=== PATIENT | male | born 1955 | race Caucasian/White ===

== ENCOUNTER 2016-12-17 17:19 | Emergency (ER) | payer OTHER ==
[2016-12-17 17:34] VITALS: RESP 18
--- NOTE | 2016-12-17 17:53 | EDPHY ---
H & P Time Seen by Provider: 12/17/16 17:52 HPI/ROS: CHIEF COMPLAINT: Cough fever and myalgias HISTORY OF PRESENT ILLNESS: This 61-year-old man was in [facility] 7 weeks ago. He developed a respiratory illness there including fever chills body aches sweats and cough. He was treated with 5 days of an oral antibiotic at that time by doctor there. He felt a little bit better but [place] had [place] of his symptoms and was treated 3 weeks ago by his primary care physician with amoxicillin for recurrence of symptoms. 2 weeks ago he was placed on prednisone as well and then over the past 24 hours had recurrence of body aches sweats and nonproductive cough. No chest pain. No rash. Mild headache. He does have some drainage from both eyes and a lot of clear and yellow snot in his nose. No known insect bites, no fresh water exposure. No gastrointestinal symptoms. REVIEW OF SYSTEMS: Eye: no change in vision ENT: no sore throat Cardiac: no chest pain or syncope Pulmonary: HPI Abdomen: no vomiting, diarrhea, abdominal pain Musculoskeletal: no back pain but diffuse myalgias Skin: no rash Neuro: no headache Constitutional: HPI : no urinary symptoms A comprehensive 10 point review of systems is otherwise negative aside from elements mentioned in the history of present illness. PAST MEDICAL HISTORY: Includes coronary disease with bypass surgery. Achilles tendon surgery. Asthma. Social history: Nonsmoker. General Appearance: Alert and conversant, cooperative. Eyes: No scleral icterus. Slight bilateral conjunctival erythema without exudate. ENT, Mouth: Normal mucous membranes. No pharyngeal erythema or intraoral lesions or trismus. Respiratory: Bilateral wheezing with increased expiratory phase at no focal lung sounds. No stridor. Cardiovascular: Regular rate and rhythm. Gastrointestinal: Abdomen is soft and non tender. No hepatosplenomegaly. Neurological: Alert and oriented x3. Normally conversant. Face symmetric, normal movement and sensation in all extremities. Skin: Warm and dry, no rashes. No vesicles petechiae or purpura. Musculoskeletal: No peripheral edema and no joint swelling. Neck supple. No calf or leg swelling. Psychiatric: Not agitated. Emergency Department course/MDM: Discussed with Dr. Ebony Pantoja at 6:10 p.m. recommend chest Xray, CBC chemistry, no blood cultures, malaria unlikely, will follow up in the office this week. White blood cell count [id number], chest x-ray does not show pneumonia. 1930: Results discussed the patient. Because of leukocytosis he would like to try repeat antibiotics. Oral azithromycin, he has an albuterol inhaler, repeat albuterol nebulizer, prednisone 60 mg p.o.. Influenza still pending at this time. Other systemic febrile illnesses including but not limited to dengue, malaria, endocarditis considered but I think less likely in that the patient clearly has a cough and wheezing and pulmonary component to his illness every time it flares up over the last 7 weeks. TB considered and discussed with Kit; office followup unless clear CXR abnormality, with neg CXR active TB thought unlikely. Smoking Status: Never smoked Constitutional: Initial Vital Signs Temperature (C) 37.2 C 12/17/16 17:25 Heart Rate 80 12/17/16 17:25 Respiratory Rate 18 12/17/16 17:25 Blood Pressure 112/73 12/17/16 17:25 O2 Sat (%) 98 12/17/16 17:25 O2 Delivery Mode Room Air Allergies/Adverse Reactions: No Known Allergies Allergy (Unverified 12/17/16 17:34) Home Medications: Medication Instructions Recorded Albuterol Hfa Anes Only [Proair 200 puffs IH 12/17/16 Hfa Icu (*)] Atorvastatin Calcium [Lipitor 40 40 mg PO 12/17/16 mg (*)] Azithromycin 250 mg PO DAILY #4 tablet 12/17/16 Beclomethasone Qvar 40 [Qvar 40 120 puffs IH 12/17/16 (*)] Benzonatate [Tessalon Pearles (RX)] 100 mg PO Q8 PRN #15 cap 12/17/16 predniSONE [prednisone 20mg (RX)] 60 mg PO DAILY 7 Days 12/17/16 Medical Decision Making - Diagnostics Imaging: Chest x-ray reviewed with Dr. Dickerson at 6:30 p.m. shows bronchitis pattern, otherwise normal. No consolidation, no cavitary lesions, no mediastinal air. Normal heart size. Differential Diagnosis: Including but not limited to TB, influenza, other viral, bronchitis, pneumonia, dengue, malaria, CHF, PE. - Data Points Laboratory Results: Laboratory Results 12/17/16 18:15 12/17/16 18:15 12/17/16 18:15 Influenza A & B (PCR) NEGATIVE FOR FLU (NEGATIVE) Medications Given: Discontinued Medications Acetaminophen/Hydrocodone Bitart ([place] 5/325mg Prepack#6) 1 btl TAKEHOME EDNOW ONE Stop: 12/17/16 20:11 Last Admin: 12/17/16 20:37 Dose: 1 btl Albuterol (Proventil Neb) 3 ml IH EDNOW ONE Stop: 12/17/16 19:48 Last Admin: 12/17/16 19:50 Dose: 3 ml Albuterol Sulfate (Proventil Inh Prepack) 1 mdi TAKEHOME EDNOW ONE Stop: 12/17/16 20:31 Last Admin: 12/17/16 20:38 Dose: 1 mdi Albuterol/Ipratropium (Duoneb) 3 ml IH EDNOW ONE Stop: 12/17/16 18:10 Last Admin: 12/17/16 18:37 Dose: 3 ml Azithromycin (Zithromax) 500 mg PO EDNOW ONE PRN Reason: Protocol Stop: 12/17/16 19:48 Last Admin: 12/17/16 20:15 Dose: 500 mg Prednisone (Prednisone) 60 mg PO EDNOW ONE Stop: 12/17/16 19:48 Last Admin: 12/17/16 20:01 Dose: 60 mg Departure - Departure Disposition: Home, Routine, Self-Care Clinical Impression: Bronchitis Condition: Good Instructions: Hydrocodone/Acetaminophen (By mouth), Albuterol (By breathing), Acute Bronchitis (ED) Additional Instructions: Influenza test negative. Use your albuterol inhaler 2 puffs every 4 hours for shortness of breath as needed. Call [facility] on Monday for follow-up in the office this week. 1 oral of Vicodin by mouth at night as needed for cough. Referrals: Ebony Pantoja MD [Medical Doctor] - As per Instructions (Follow-up with [facility] this week, I discussed your case with this physician on the telephone.) Stand Alone Forms: Work Excuse Prescriptions: Azithromycin 250 mg PO DAILY #4 tablet Benzonatate [Tessalon Pearles (RX)] 100 mg PO Q8 PRN #15 cap PRN Reason: Cough, Moderate predniSONE [prednisone 20mg (RX)] 60 mg PO DAILY 7 Days
[2016-12-17] MEDS ORDERED: IPRATROPIUM/ALBUTEROL 3 ML DEYVIAL IH ONE (18:09)
[2016-12-17] MEDS ORDERED: IPRATROPIUM/ALBUTEROL 3 ML DEYVIAL ONE (18:28)
[2016-12-17 18:39] LABS: % IMMATURE GRANULYOCYTES 0.3 % (0.0-1.1); ABSOLUTE IMMATURE GRANULOCYTES 0.06 10^3/uL (0.00-0.10); ADD DIFF? NO; ADD MORPH? NO; ADD SCAN? NO; ATYPICAL LYMPHOCYTE FLAG 0 (0-99); FRAGMENT RBC FLAG 0 (0-99); HEMATOCRIT 43.1 % (40.0-51.0); HEMOGLOBIN 15.3 g/dL (13.7-17.5); LEFT SHIFT FLG 10 (0-99); LIPEMIA HEMOLYSIS FLAG 90 (0-99); MEAN CELL HEMOGLOBIN 30.8 pg (27.9-34.1); MEAN CELL HEMOGLOBIN CONCENTR. 35.5 g/dL (32.4-36.7); MEAN CELL VOLUME 86.9 fL (81.5-99.8); MEAN PLATELET VOLUME 9.5 fL (8.7-11.7); PLATELET CLUMPS FLAG 0 (0-99); PLATELET COUNT 238 10^3/uL (150-400); RED BLOOD CELL COUNT 4.96 10^6/uL (4.40-6.38); RED CELL DISTRIBUTION WIDTH 12.7 % (11.5-15.2)
--- NOTE | 2016-12-17 18:42 | DX ---
Chest, PA and Lateral December 17, 2016 History: Dyspnea. Cough. Comparison: April 2010. Findings: Heart size is within normal limits. Pulmonary vascularity appears normal. Emphysematous con figuration to the chest. Minimal peribronchial wall thickening is seen. No evidence for pleural effus ion or pneumothorax. Mild degenerative change is seen in the thoracic spine. There is evidence of claudia or open heart surgery with sternotomy wires and clips in the anterior mediastinum. Impression: Minimal bronchitis. No other findings for acute cardiopulmonary abnormality.
[2016-12-17 18:57] LABS: ANION GAP 8 mEq/L (8-16); CALCIUM 9.2 mg/dL (8.5-10.4); CARBON DIOXIDE 25 mEq/l (22-31); CHLORIDE 105 mEq/L (97-110); GLOMERULAR FILTRATION RATE > 60; GLUCOSE 77 mg/dL (70-100); POTASSIUM 4.3 mEq/L (3.5-5.2); SODIUM 138 mEq/L (134-144)
[2016-12-17] MEDS ORDERED: ALBUTEROL 3 ML DEYVIAL IH ONE (19:47)
[2016-12-17] MEDS ORDERED: predniSONE 20 MG TAB PO ONE (19:47)
[2016-12-17] MEDS ORDERED: AZITHROMYCIN 250 MG TAB PO ONE (19:47)
[2016-12-17] MEDS ORDERED: HYDROCOD/APAP 5/325 PREPACK#6 BTL TAKEHOME ONE (20:10)
[2016-12-17] MEDS ORDERED: ALBUTEROL INH PREPACK MDI TAKEHOME ONE ×2 (20:26→20:30)
[2016-12-17 20:36] VITALS: BP 107/76; PULSE 97; TEMP 98.4; O2SAT 92
== END 2016-12-17 20:39 | disposition home or self-care (01) ==
DX: J20.9 Acute bronchitis, unspecified (principal); J45.909 Unspecified asthma, uncomplicated

== ENCOUNTER 2017-05-18 12:04 | Day surgery (SDC) | payer OTHER ==
[2017-05-18] MEDS ORDERED: ASPIRIN EC 325 MG TAB PO ONE ×2 (12:05→12:26)
[2017-05-18] MEDS ORDERED: NS 1,000 ML IV ONE (12:05)
[2017-05-18] MEDS ORDERED: DIAZEPAM 5 MG TAB PO ONE (12:05)
[2017-05-18] MEDS ORDERED: FAMOTIDINE 20 MG TAB PO ONE (12:05)
[2017-05-18] MEDS ORDERED: diphenhydrAMINE 25 MG CAP PO ONE ×2 (12:05→12:26)
[2017-05-18] MEDS ORDERED: FAMOTIDINE 20 MG TAB ONE (12:26)
--- NOTE | 2017-05-18 12:26 | CPEKG ---
Heart Rate: 69 RR Interval: 870 P-R Interval: 168 QRSD Interval: 92 QT Interval: 404 QTC Interval: 433 P [place]: 79 QRS [place]: 0 T Wave [place]: 43 EKG Severity - NORMAL ECG - EKG Impression: SINUS RHYTHM Electronically Signed By: Arvin Blount 18-May-2017 16:06:48
[2017-05-18] MEDS ORDERED: DIAZEPAM 5 MG TAB ONE (12:27)
[2017-05-18 12:35] LABS: % IMMATURE GRANULYOCYTES 0.4 % (0.0-1.1); ABSOLUTE IMMATURE GRANULOCYTES 0.03 10^3/uL (0.00-0.10); ADD DIFF? NO; ADD MORPH? NO; ADD SCAN? NO; ATYPICAL LYMPHOCYTE FLAG 20 (0-99); FRAGMENT RBC FLAG 0 (0-99); HEMATOCRIT 47.2 % (40.0-51.0); HEMOGLOBIN 16.8 g/dL (13.7-17.5); LEFT SHIFT FLG 0 (0-99); LIPEMIA HEMOLYSIS FLAG 90 (0-99); MEAN CELL HEMOGLOBIN CONCENTR. 35.6 g/dL (32.4-36.7); MEAN CELL VOLUME 89.9 fL (81.5-99.8); MEAN PLATELET VOLUME 9.4 fL (8.7-11.7); PLATELET CLUMPS FLAG 0 (0-99); PLATELET COUNT 260 10^3/uL (150-400); RED BLOOD CELL COUNT 5.25 10^6/uL (4.40-6.38); RED CELL DISTRIBUTION WIDTH 12.1 % (11.5-15.2)
[2017-05-18] MEDS ORDERED: LIDOCAINE 1% 300 MG/30 ML SDV ONE (12:42)
[2017-05-18] MEDS ORDERED: fentaNYL 100 MCG/2 ML INJ ONE (12:43)
[2017-05-18] MEDS ORDERED: IOPAMIDOL (ISOVUE-370) 150 ML BTL IV ONE (12:43)
[2017-05-18] MEDS ORDERED: MIDAZOLAM 2 MG/2 ML VIAL ONE ×3 (12:43→13:56)
[2017-05-18 12:47] LABS: INR 0.94 (0.83-1.16); PROTIME(PATIENT) 12.5 SEC (12.0-15.0)
[2017-05-18 12:59] LABS: ANION GAP 11 mEq/L (8-16); CALCIUM 9.9 mg/dL (8.5-10.4); CARBON DIOXIDE 20 mEq/l (22-31); CHLORIDE 108 mEq/L (97-110); CHOLESTEROL 162 mg/dL (140-220); CHOLESTEROL/HDL RATIO 1.98 RATIO (1.00-4.97); CREATININE 1.1 mg/dL (0.7-1.3); GLOMERULAR FILTRATION RATE > 60; GLUCOSE 94 mg/dL (70-100); HIGH DENSITY LIPOPROTEIN 82 mg/dL (40-65); LDL/HDL RATIO 0.87 RATIO (1.00-3.64); LOW DENSITY LIPOPROTEIN 71 mg/dL (80-100); NON-HIGH DENSITY LIPOPROTEIN 80 mg/dL (90-129); POTASSIUM 4.4 mEq/L (3.5-5.2); SODIUM 139 mEq/L (134-144); TRIGLYCERIDE 46 mg/dL (40-150); VERY LOW DENSITY LIPOPROTEINS 9 mg/dL (8-25)
--- NOTE | 2017-05-19 07:37 | CPIP ---
[f rep st] INVASIVE CARDIAC PROCEDURE DATE OF PROCEDURE: 05/18/2017 PROCEDURE PERFORMED: 1. Selective coronary angiography. 2. Selective saphenous vein graft angiography to the diagonal. 3. Selective saphenous vein graft angiography to the obtuse marginal system. 4. Selective left internal mammary artery angiography. 5. Selective right internal mammary artery angiography. 6. Left ventriculogram. 7. Left heart catheterization. 8. Manual hold arteriotomy repair of the right femoral approach. COMPLICATIONS: None. INDICATION FOR THE PROCEDURE: Recurrent chest discomfort occurring at rest with CCS Class IV angina , as well as an abnormal intermediate risk nuclear stress test, suggesting myocardial ischemia. PROCEDURE IN DETAIL: After informed consent was obtained and n.p.o. status was confirmed, the regio n of the right groin was cleaned, prepped and draped in sterile fashion. Approximately 10 cc of 1% lidocaine was utilized for local anesthesia. A micropuncture set was used to gain access to the com mon femoral vein using modified Seldinger technique. The 6-Armenian sheath was then placed over a J w annette. The patient then underwent the previously mentioned diagnostic procedures with the use of JL4 and R4 curved coronary catheters, as well as a 5-Armenian Mckinley right catheter and a 6-Armenian pigta il catheter. Standard wire exchange technique was utilized for all catheter exchanges. The left main coronary lumen is approximately 5 mm in size. It is severely obstructed at the bifurc ation of the LAD and circumflex vessels. There is evidence of competitive flow and back filling of a saphenous vein graft to the diagonal saphenous vein graft to the circumflex obtuse marginal and of the EASTMAN to the LAD. There is [place]-3 flow through the vessels. There is high-grade proximal obstr uction of the LAD, estimated at 70%-80%. There was severe obstruction of the proximal left circumfl ex with a 90%-95% obstruction, which is relatively diffuse and long. The right catheter was used to gain access to the vein graft to the diagonal which is widely patent with good anastomosis and exce llent [place]-3 flow to the diagonal vessel. The vessel is large, approximately 2.5 mm in size. It is free of flow-limiting disease, distal to the anastomosis. The retrograde limb of the diagonal conn ecting into the LAD is almost completely obstructed. The saphenous vein graft to the obtuse margina l vessel is likewise widely patent without evidence of disease. There is excellent [place]-3 flow into the obtuse marginal branches. The EASTMAN catheter was then placed in the left subclavian vein over a wire and EASTMAN angiography was performed. The EASTMAN has an unusual anatomic distribution and splits into 2 branches. One which is medial and is anastomosed to the LAD, the other which goes laterally to the chest and provides multiple intercostal branches to the left side of the chest. The EASTMAN is therefore quite small compared to normal but is anastomosed to the LAD and is widely patent. It is approximately 1/2 the size of the LAD proper. The DANYA catheter was used to gain access to the right internal mammary artery. The right internal mammary artery is atretic and occluded and has a simil ar wide bifurcation just after its takeoff from the right subclavian vein. It likewise has a latera l branch that goes to the lateral anterior wall of the chest providing intercostals to the right nam e of the chest. The medial branch, which was originally anastomosed to the right coronary artery, i s again noted to be atretic and is occluded without important flow to the myocardium. Mckinley righ t catheter was then used to gain access to the [place] right coronary artery which has been previousl y stented. That vessel is widely patent with approximately 40% stenosis. There is excellent [place]-3 flow of the distal vessel and this stent is widely patent without evidence of obstruction or resten oses. The patient underwent left heart catheterization demonstrating elevated left ventricular end-diastol ic pressure measured at 17 mmHg. The patient underwent left ventriculogram in the HU[place]Y projection, d emonstrating preserved left ventricular systolic function. Estimated ejection fraction is 55%-60%. 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 There is no evidence of significant mitral regurgitation and there was no evidence of aortic stenosis upon pullback across the aortic valve. FINAL IMPRESSION: Severe [place] vessel coronary disease as previously described with a widely paten t right coronary artery, severely diseased left main proximal left anterior descending artery and pr oximal circumflex vessels with patent left internal mammary artery to the left anterior descending a rtery, saphenous vein graft to the circumflex obtuse marginal and saphenous vein graft to the diagon al vessel. 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 The patient should continue to be t reated to achieve an LDL cholesterol less than 100, non HDL cholesterol less than 100, and diet and exercise should be continued to reduce his risk of cardiovascular events, as well as progression of atherosclerosis. Copy requested to: VINCENZO /[id number]/MODL
== END 2017-05-18 19:06 | disposition home or self-care (01) ==
LOC: FCATH 12:04
PROVIDERS: ATTEND Internal Medicine Cardiovascular Disease
PROC: B21F1ZZ Fluoroscopy of Other Bypass Graft using Low Osmolar Contrast (ICD-10-PCS; principal; 2017-05-18)
PROC: 4A023N7 Measurement of Cardiac Sampling and Pressure, Left Heart, Percutaneous Approach (ICD-10-PCS; principal; 2017-05-18)
PROC: B2171ZZ Fluoroscopy of Right Internal Mammary Bypass Graft using Low Osmolar Contrast (ICD-10-PCS; principal; 2017-05-18)
PROC: B2111ZZ Fluoroscopy of Multiple Coronary Arteries using Low Osmolar Contrast (ICD-10-PCS; principal; 2017-05-18)
PROC: B2181ZZ Fluoroscopy of Left Internal Mammary Bypass Graft using Low Osmolar Contrast (ICD-10-PCS; principal; 2017-05-18)
PROC: B2151ZZ Fluoroscopy of Left Heart using Low Osmolar Contrast (ICD-10-PCS; principal; 2017-05-18)
DX: I25.119 Atherosclerotic heart disease of native coronary artery with unspecified angina pectoris (principal); Z95.1 Presence of aortocoronary bypass graft
CPT/HCPCS: J1644; J2250; J3010; Q9967